=== PATIENT | male | born 1990 | race Caucasian/White ===

== ENCOUNTER 2016-08-02 13:22 | Emergency (ER) | payer OTHER ==
[2016-08-02 13:22] VITALS: BP 111/62
--- NOTE | 2016-08-02 14:13 | PHYS DOC ---
Adult General Chief Complaint Chief Complaint: HAND PROBLEM HPI HPI Patient is a 26 year old female who presents with complaints of pain to the right hand. Patient states that his symptoms started 3 days ago. Patient states that his pain has progressively worsened since 3 days ago. Patient is vague regarding details of what happened to his hand but states that he may have injured it. Patient does admit to alcohol use at the time of injury. Patient states that the pain is across the top of his hand but does state that it is worse along the fourth and fifth knuckles. Patient rates his pain currently as 10 out of 10. Patient has been taking ibuprofen and has been applying ice to his hand with no relief in symptoms. Review of Systems Review of Systems Constitutional: Denies fever or chills [] Eyes: Denies change in visual acuity, redness, or eye pain [] HENT: Denies nasal congestion or sore throat [] Respiratory: Denies cough or shortness of breath [] Cardiovascular: Denies chest pain or edema [] GI: Denies abdominal pain, nausea, vomiting, bloody stools or diarrhea [] Musculoskeletal: Right hand pain [] Integument: Denies rash or skin lesions [] Neurologic: Denies headache, focal weakness or sensory changes [] Allergies Allergies Allergies Coded Allergies Type Severity Reaction Last Updated Verified No Known Drug Allergies 08/02/16 No Physical Exam Physical Exam Constitutional: Alert, afebrile, appears in mild to moderate discomfort. [] HENT: Normocephalic, atraumatic, bilateral external ears normal, oropharynx moist, no oral exudates, nose normal. [] Cardiovascular:Heart rate regular rhythm, no murmur [] Lungs & Thorax: Bilateral breath sounds clear to auscultation [] Abdomen: Bowel sounds normal, soft, no tenderness, no masses, no pulsatile masses. [] Skin: Warm, dry, no erythema, no rash. [] Extremities: Mild to moderate soft tissue swelling along right fourth and fifth MCP joints, direct tenderness to palpation, pain with passive range of motion including flexion and extension of fourth and fifth digits, no erythema. [] Neurologic: Alert and oriented X 3, normal motor function, normal sensory function, no focal deficits noted. [] EKG EKG Not performed [] Radiology/Procedures Radiology/Procedures [address] [address] IMAGING REPORT Signed PATIENT: TANA ZARAGOZA ACCOUNT: [id number] : 1990 LOCATION: ER AGE: 26 SEX: M EXAM STATUS: PRE ER ORD. PHYSICIAN: LUDIN VINES MD REASON: right hand pain, swelling over fifth MCP joint PROCEDURE: HAND RIGHT 3V Indication pain and swelling. Possible injury. AP oblique and lateral views of the right hand were obtained. No fracture or definite acute bony abnormality is seen. On the lateral view there is a horizontal lucency overlying either the base of one of the metacarpals or one of the carpal bones itself. This is not seen on the AP or oblique image and is probably incidental. If there is a strong index of suspicion for fracture at the base of one of the metacarpals or involving the carpal bones CT or MRI could be performed IMPRESSION: No definite acute finding seen involving the right hand. See above discussion DICTATED AND SIGNED BY: CHASITY SANTOS MD DATE: 08/02/161421 CC: LUDIN VINES MD; PCP,NO ~ [] Course & Med Decision Making Course & Med Decision Making Pertinent Labs and Imaging studies reviewed. (See chart for details) The patient has a possible fracture of the capitate bone on review of the x- rays. The patient was placed in a volar splint which was applied by the emergency department nurse. My evaluation of the right hand post-splint application showed normal capillary refill in all 5 digits and normal sensation. Patient was treated with oral Percocet in the emergency department. Patient referred to Dr. Moore of orthopedic surgery with recommended follow-up in 10 days for reevaluation and repeat imaging. Patient was given a note for work with recommendations of not using the right hand until reevaluated by merchandising specialist. Advised return emergency department for any worsening symptoms. Patient voiced understanding and in agreement with treatment plan. Dragon Disclaimer Dragon Disclaimer This chart was dictated in whole or in part using Voice Recognition software in a busy, high-work load, and often noisy Emergency Department environment. It may contain unintended and wholly unrecognized errors or omissions. Departure Departure: Impression: Primary Impression: Carpal bone fracture Disposition: HOME, SELF-CARE Condition: IMPROVED Referrals: PCP,NO (PCP) АННА MOORE MD Patient Instructions: Wrist Fracture Additional Instructions: Follow-up with orthopedic surgery in 10 days for reevaluation of your wrist. Return to the emergency department for any worsening symptoms. Scripts Oxycodone Hcl/Acetaminophen (PERCOCET 5-325 MG TABLET) 1 Each Tablet 1 TAB PO Q4-6HRS Y for PAIN, #20 TAB Prov: LUDIN VINES MD 08/02/16 Problem Qualifiers Primary Impression: Carpal bone fracture Encounter type: initial encounter Carpal bone: capitate Fracture type: closed Fracture alignment: nondisplaced Laterality: right Qualified Codes: S62.134A - Nondisplaced fracture of capitate [os magnum] bone, right wrist, initial encounter for closed fracture LUDIN VINES MD August 02, 2016 14:13
--- NOTE | 2016-08-02 14:28 | RAD ---
Indication pain and swelling. Possible injury. AP oblique and lateral views of the right hand were obtained. No fracture or definite acute bony abnormality is seen. On the lateral view there is a horizontal lucency overlying either the base of one of the metacarpals or one of the carpal bones itself. This is not seen on the AP or oblique image and is probably incidental. If there is a strong index of suspicion for fracture at the base of one of the metacarpals or involving the carpal bones CT or MRI could be performed IMPRESSION: No definite acute finding seen involving the right hand. See above discussion
[2016-08-02] MEDS ORDERED: OXYC-323 PO (14:44)
[2016-08-02] MEDS ORDERED: oxyCODONE/APAP 5/325 1 TAB TABLET PO ONE (15:10)
== END 2016-08-02 15:15 | disposition home or self-care (01) ==
LOC: ER 13:22
DX: S62.101A Fracture of unspecified carpal bone, right wrist, initial encounter for closed fracture (principal); X58.XXXA Exposure to other specified factors, initial encounter; Y93.89 Activity, other specified; Y99.8 Other external cause status; Y92.89 Other specified places as the place of occurrence of the external cause
CPT/HCPCS: 29125; 73130; 99284-25